=== PATIENT | male | born 1985 | race Caucasian/White ===

== ENCOUNTER 2020-07-12 18:08 | Emergency (ER) | payer SELFPAY ==
[~2020-07-12] VITALS: Ht 160 cm; Wt 56.7 kg
[2020-07-12] MEDS ORDERED: SODIUM CHLORIDE 0.9% 1000ML 1,000 ML IV SCH (18:30)
[2020-07-12] MEDS ORDERED: CHLORDIAZEPOXIDE HCL 25 MG CAP PO ONE (18:30)
[2020-07-12 18:36] LABS: BASOPHILS % 0.3 % (0.0-1.0); HEMATOCRIT 41.1 % (38.2-49.6); HEMOGLOBIN 14.1 g/dL (14.0-18.0); LYMPHOCYTES # (AUTO) 1.9 (1.0-3.2); LYMPHOCYTES % 15.3 % (18.0-39.1); MEAN CORPUSCULAR HEMOGLOBIN 28.4 pg (28-32); MEAN CORPUSCULAR HGB CONC 34.3 g/dL (31-35); MEAN CORPUSCULAR VOLUME 82.9 fL (81-99); MONOCYTES # (AUTO) 0.5 (0.2-0.8); NEUTROPHILS # (AUTO) 9.7 (2.1-6.9); NEUTROPHILS % 79.9 % (38.7-80.0); PLATELET COUNT 416 x10e3/uL (140-360); RED BLOOD COUNT 4.96 x10e6/uL (4.3-5.7); RED CELL DISTRIBUTION WIDTH 12.5 % (11.7-14.4)
--- NOTE | 2020-07-12 18:36 | Emergency Department Note ---
History of Present Illnes History of Present Illness Chief Complaint: Abdominal Complaints History of Present Illness This is a 35 year old male Chief Complaint Comment [facility] ESCORTED BY [place] [employer] Jean Pierre RAMIREZ, PT C/O ABDOMINAL PAIN AND VOMITING, PT STATES THAT HE IS WITHDRAWING FROM ALCOHOL AND HEROINE, PT PRESUMABLY "TRIED TO HIDE DRUGS IN HIS RECTUM" REPORTED BY OTHER INMATES, PT ADMITS TO USING IV HEROINE. Per police patrol lieutenant, there is video of patient pulling a bag of white substance from his rectum earlier today. He was arrested yesterday evening, seen at [facility] for seizures, discharged, then went to [facility] where the above was noted. He was then brought to the ER for the bag of white substance he pulled out of his rectum. Historian: [facility] Required: No Onset (how long ago): day(s) (1) Location: Generalized Quality: withdrawal Radiation: Reports non-radiation Severity: moderate Onset quality: gradual Duration (how long): day(s) (1) Timing of current episode: constant Progression: worsening Chronicity: new Context: Denies recent illness, Denies recent surgery Relieving factors: none Exacerbating factors: none Associated symptoms: Reports denies other symptoms Treatments prior to arrival: none Past Medical/Family History Physician Review I have reviewed the patient's past medical and family history. Any updates have been documented here. Past Medical History Recent Fever: No Clinical Suspicion of Infectio: No New/Unexplained Change in Ment: No Past Medical History: Seizure Disorder Past Surgical History: None Review of Systems Review of Systems Constitutional: Reports as per HPI, Reports chills EENTM: Reports no symptoms Cardiovascular: Reports no symptoms Respiratory: Reports no symptoms Gastrointestinal: Reports no symptoms, Reports as per HPI, Reports abdominal pain Genitourinary: Reports no symptoms Musculoskeletal: Reports no symptoms Integumentary: Reports no symptoms Neurological: Reports no symptoms Psychological: Reports no symptoms Endocrine: Reports no symptoms Hematological/Lymphatic: Reports no symptoms Physical Exam Related Data Triage Vital Signs Vital Signs Date Time Temp Pulse Resp B/P (MAP) Pulse Ox O2 Delivery O2 Flow Rate FiO2 07/12/20 18:13 98.7 70 28 105/92 99 Room Air Vital signs reviewed: Yes Physical Exam CONSTITUTIONAL Constitutional: Present well-developed, Present well-nourished HENT HENT: Present normocephalic, Present atraumatic, Present oropharynx clear/moist, Present nose normal HENT L/R: Present left ext ear normal, Present right ext ear normal EYES Eyes: Reports PERRL, Reports conjunctivae normal NECK Neck: Present ROM normal PULMONARY Pulmonary: Present effort normal, Present breath sounds normal CARDIOVASCULAR Cardiovascular: Present regular rhythm, Present heart sounds normal, Present capillary refill normal, Present normal rate GASTROINTESTINAL Abdominal: Present soft, Present nontender, Present bowel sounds normal GENITOURINARY Genitourinary: Present exam deferred SKIN Skin: Present warm, Present dry MUSCULOSKELETAL Musculoskeletal: Present ROM normal NEUROLOGICAL Neurological: Present alert, Present oriented x 3, Present no gross motor or sensory deficits PSYCHOLOGICAL Psychological: Present mood/affect normal, Present judgement normal Results Laboratory Laboratory Laboratory Tests Test 07/12/20 18:19 Lab results reviewed: Yes Imaging Imaging results reviewed: Yes Assessment & Plan Medical Decision Making MDM 35 y.o M presents in police custody from [facility] for pulled bag of drugs drugs out of his rectum. Patient adamantly denies this. He endorses daily heroin and alcohol use. He states he has some abdominal pain and is cold. He denies other symptoms. Examination shows asymptomatic, normotensive bradycardia, vital signs otherwise within normal limits. No signs of alcohol withdrawal at this time. Pre sumed last drink was 36 hours ago from history. Was given 25. No signs of withdrawal at this time. He will not require admission for withdrawal. I discussed with patient and the officer with him that if signs withdrawal do occur he'll need to be reevaluated by a physician. He was given a by mouth treatment for STDs as well. Patient's appropriate for discharge to [facility]. Reassessment Reassessment time: 19:30 Reassessment Resting comfortably after librium Assessment & Plan Final Impression: (1) STD (male) Depart Disposition: HOME, SELF-CARE ([place]) Last Vital Signs Date Time Temp Pulse Resp B/P (MAP) Pulse Ox O2 Delivery O2 Flow Rate FiO2 07/12/20 18:13 98.7 70 28 105/92 99 Room Air Medications in the ED Sodium Chloride 1,000 ml @ 0 mls/hr Q0M IV ; Start 07/12/20 at 18:30; Stop 07/12/20 at 19:29 Chlordiazepoxide HCl 25 mg ONCE ONCE PO ; Start 07/12/20 at 18:30; Stop 07/12/20 at 18:31; Status DC NEIL HUGGINS MD Jul 12, 2020 18:35
[2020-07-12 18:53] LABS: ALANINE AMINOTRANSFERASE 10 IU/L (0-55); ALBUMIN 4.8 g/dL (3.5-5.0); ALBUMIN/GLOBULIN RATIO 1.3 (0.8-2.0); ALKALINE PHOSPHATASE 86 IU/L (40-150); ANION GAP 19.7 mmol/L (8-16); BLOOD UREA NITROGEN 19 mg/dL (7-26); BUN/CREATININE RATIO 23 (6-25); CARBON DIOXIDE 21 mmol/L (22-29); CHLORIDE 105 mmol/L (98-107); CREATININE, SERUM 0.82 mg/dL (0.72-1.25); EST GLOMERULAR FILTRATION RATE > 60 ML/MIN (60-); GLUCOSE 115 mg/dL (74-118); POTASSIUM 3.7 mmol/L (3.5-5.1); SODIUM 142 mmol/L (136-145)
[2020-07-12 19:11] LABS: SALICYLATE < 5.0 mg/dL (0-30)
[2020-07-12] MEDS ORDERED: IOPAMIDOL 370 MG/ML 200 ML INFUS..BTL INJ ONE (19:28)
[2020-07-12] MEDS ORDERED: SODIUM CHLORIDE 0.9% 50ML 50 ML ONE (19:28)
[2020-07-12 20:07] LABS: AMPHETAMINES SCREEN,URINE POSITIVE (NEGATIVE); CLARITY,URINE CLOUDY (CLEAR); COLOR,URINE ORANGE (YELLOW); KETONES,URINE >=160 (NEGATIVE); LEUKOCYTE ESTERASE ,URINE NEGATIVE (NEGATIVE); NITRITE,URINE NEGATIVE (NEGATIVE); PHENCYCLIDINE SCREEN,URINE NEGATIVE (NEGATIVE); PROTEIN,URINE DIPSTICK 2+ (NEGATIVE)
[2020-07-12 20:08] LABS: BENZODIAZEPINES SCREEN,URINE POSITIVE (NEGATIVE)
[2020-07-12 20:09] LABS: BILIRUBIN,URINE SMALL (NEGATIVE); URINE UROBILINOGEN 0.2 mg/dL (0.2 - 1)
[2020-07-12 20:18] LABS: BACTERIA,URINE MANY /HPF; CALCIUM OXALATE CRYSTALS,UR FEW (FEW); EPITHELIAL CELLS,URINE FEW /LPF; MUCUS,URINE MANY (RARE)
--- NOTE | 2020-07-12 21:25 | Diagnostic Imaging Report ---
EXAM: CT Abdomen and Pelvis WITH contrast INDICATION: Abd pain COMPARISON: TECHNIQUE: Abdomen and pelvis were scanned utilizing a multidetector helical scanner from the lung base to the pubic symphysis after administration of IV contrast. Coronal and sagittal reformations were obtained. Routine protocol was performed. Scan was performed when during portal venous phase. IV CONTRAST: 100 mL of Isovue 370 ORAL CONTRAST: None COMPLICATIONS: None FINDINGS: LOWER THORAX: Unremarkable None. HEPATOBILIARY: A few subcentimeter hypodensities are too small to characterize, likely cysts. No biliary ductal dilation. GALLBLADDER: No radio-opaque stones or sludge. No wall thickening. SPLEEN: No splenomegaly. PANCREAS: No focal masses or ductal dilatation. ADRENALS: No adrenal nodules KIDNEYS/URETERS: Kidneys enhance symmetrically. No hydronephrosis. No cystic or solid mass lesions. No stones. GI TRACT: No abnormal distention, wall thickening, or evidence of bowel obstruction. Appendix is normal. Stomach is distended. PELVIC ORGANS/BLADDER: Unremarkable. LYMPH NODES: No lymphadenopathy. VESSELS: Unremarkable. PERITONEUM / RETROPERITONEUM: No free air or fluid. BONES: Unremarkable. SOFT TISSUES: Unremarkable. IMPRESSION: No acute abdominopelvic process. Signed by: Guy York MD on 07/12/2020 9:22 PM
[2020-07-12] MEDS ORDERED: METRONIDAZOLE 500 MG TAB PO ONE (21:45)
[2020-07-12] MEDS ORDERED: CEFTRIAXONE SOD 250 MG VIAL IM ONE (21:45)
[2020-07-12] MEDS ORDERED: AZITHROMYCIN 250 MG TAB PO ONE (21:45)
[2020-07-12] MEDS ORDERED: ONDANSETRON HCL 4 MG ORAL DISINTEGRATING TAB PO ONE (21:45)
[2020-07-12] MEDS ORDERED: AZITHROMYCIN 250 MG TAB ONE (21:56)
[2020-07-12] MEDS ORDERED: LIDOCAINE HCL 1% 2 ML AMP ONE (21:57)
[2020-07-12 22:02] VITALS: BP 119/80
== END 2020-07-12 22:19 | disposition home or self-care (01) ==
LOC: ER 18:16
DX: A64 Unspecified sexually transmitted disease (principal); G40.909 Epilepsy, unspecified, not intractable, without status epilepticus; F11.90 Opioid use, unspecified, uncomplicated; F17.210 Nicotine dependence, cigarettes, uncomplicated
CPT/HCPCS: 36415; 74177; 80053; 80307; 80320; 80329 ×2; 81001; 85025; 93005; 99284; J0696; J2001; J7030; Q0162; Q9967